=== PATIENT | male | born 1970 | race Caucasian/White ===

== ENCOUNTER 2018-08-10 09:27 | Emergency (ER) | payer MEDICAID ==
[~2018-08-10] VITALS: Ht 195.6 cm; Wt 113.6 kg
[2018-08-10 09:30] VITALS: BP 137/94
[2018-08-10] MEDS ORDERED: NAPR-56 PO (09:42)
[2018-08-10] MEDS ORDERED: PENI250T2 PO (09:42)
[2018-08-10] MEDS ORDERED: HYDROcodone/acetaminophen 5mg/325mg tablet PO ONE (09:45)
== END 2018-08-10 09:58 | disposition home or self-care (01) ==
LOC: ER 09:27
DX: K08.89 Other specified disorders of teeth and supporting structures (principal); K05.10 Chronic gingivitis, plaque induced; Z56.0 Unemployment, unspecified; Z79.899 Other long term (current) drug therapy
CPT/HCPCS: 99283

== ENCOUNTER 2018-09-12 17:47 | Emergency (ER) | payer MEDICAID ==
[~2018-09-12] VITALS: Ht 195.6 cm; Wt 113.6 kg
[2018-09-12 17:48] VITALS: BP 135/82
[2018-09-12] MEDS ORDERED: CEPH-572 PO (18:32)
[2018-09-12] MEDS ORDERED: ketorolac tromethamine 15mg/ml inj. IM ONE (18:35)
[2018-09-12] MEDS ORDERED: bacitracin 15gm ointment TP ONE (18:35)
== END 2018-09-12 18:54 | disposition home or self-care (01) ==
LOC: ER 17:47
DX: H00.032 Abscess of right lower eyelid (principal); Z79.2 Long term (current) use of antibiotics; Z79.899 Other long term (current) drug therapy; Z56.0 Unemployment, unspecified
CPT/HCPCS: 96372; 99283; J1885